=== PATIENT | male | born 1995 | race African-American/Black ===

== ENCOUNTER 2024-09-28 09:42 | Emergency (ER) | payer OTHER ==
[~2024-09-28] VITALS: Ht 180.3 cm; Wt 103.1 kg
[2024-09-28] MEDS ORDERED: GABA-284 PO (09:53)
[2024-09-28 12:02] VITALS: BP 112/67; TEMP 97.8; O2SAT 100
[2024-09-28 12:44] LABS: BASO % 0.3 % (0.0-1.0); EOS # 0.2 10^3/uL (0.0-0.5); EOS % 2.3 % (0.0-3.0); HEMATOCRIT 44.2 % (42.0-52.0); HEMOGLOBIN 14.1 g/dl (13.5-17.5); LYMPH # 2.1 10^3/uL (1.5-5.0); LYMPH % 31.3 % (24.0-44.0); MEAN CORPUSCULAR HEMOGLOBIN 26.3 pg (27.0-33.0); MEAN CORPUSCULAR HGB CONC 31.9 g/dl (32.0-36.5); MEAN CORPUSCULAR VOLUME 82.5 fl (80.0-96.0); MONO # 0.6 10^3/uL (0.0-0.8); NEUTROPHILS # 3.8 10^3/uL (1.5-8.5); NEUTROPHILS % 56.9 % (36.0-66.0); PLATELET COUNT, AUTOMATED 172 10^3/uL (150-450); RED BLOOD COUNT 5.36 10^6/uL (4.30-6.10); WHITE BLOOD COUNT 6.6 10^3/uL (4.0-10.0)
[2024-09-28 13:08] LABS: BLOOD UREA NITROGEN 13 MG/DL (9-23); CARBON DIOXIDE LEVEL 27 MMOL/L (20-31); CHLORIDE LEVEL 105 MMOL/L (98-107); CREATININE FOR GFR 1.09 MG/DL (0.70-1.30); GLOMERULAR FILTRATION RATE > 60.0 (>60); GLUCOSE, FASTING 93 MG/DL (60-100); POTASSIUM SERUM 4.3 MMOL/L (3.5-5.1); SODIUM LEVEL 139 MMOL/L (136-145)
[2024-09-28] MEDS ORDERED: ISOVUE-370 76% 100ML VIAL As Ordered ONE (13:10)
[2024-09-28] MEDS: cefTRIAXone SOD 2 GM in DEXTROSE 5% (D5W) ADV/MINI-BAG 50 ML IV ONE (14:57)
== END 2024-09-28 15:39 | disposition home or self-care (01) ==
LOC: M ED 09:42
DX: K35.80 Unspecified acute appendicitis (principal); K42.9 Umbilical hernia without obstruction or gangrene
CPT/HCPCS: 74177; 80048; 83605; 85025; 96374; 99284; J0696; Q9967

== ENCOUNTER 2024-09-29 10:38 | Emergency (ER) | payer OTHER ==
[~2024-09-29] VITALS: Ht 180.3 cm; Wt 102.0 kg
[~2024-09-29 10:38] MED LIST: GABA-284 PO
[2024-09-29] MEDS: NS (Normal Saline) 0.9% 1,000 ML IV ONE (11:45)
[2024-09-29] MEDS: KETOROLAC 30 MG/ML 1ML VIAL IV ONE (11:57)
[2024-09-29 12:20] LABS: BASO % 0.3 % (0.0-1.0); EOS # 0.2 10^3/uL (0.0-0.5); EOS % 2.9 % (0.0-3.0); HEMATOCRIT 45.9 % (42.0-52.0); HEMOGLOBIN 14.6 g/dl (13.5-17.5); LYMPH # 2.2 10^3/uL (1.5-5.0); LYMPH % 38.6 % (24.0-44.0); MEAN CORPUSCULAR HEMOGLOBIN 26.4 pg (27.0-33.0); MEAN CORPUSCULAR HGB CONC 31.8 g/dl (32.0-36.5); MONO # 0.5 10^3/uL (0.0-0.8); MONO % 8.8 % (2.0-8.0); NEUTROPHILS # 2.9 10^3/uL (1.5-8.5); NEUTROPHILS % 49.2 % (36.0-66.0); PLATELET COUNT, AUTOMATED 179 10^3/uL (150-450); RED BLOOD COUNT 5.53 10^6/uL (4.30-6.10); WHITE BLOOD COUNT 5.8 10^3/uL (4.0-10.0)
[2024-09-29 12:38] LABS: LIPASE 30 U/L (12-53)
[2024-09-29 12:40] LABS: ALBUMIN 3.7 G/DL (3.2-5.2); ALKALINE PHOSPHATASE 58 U/L (40-129); ALT/SGPT 25 U/L (7.0-40); AST/SGOT 39 U/L (<34); BILIRUBIN,DIRECT 0.3 MG/DL (<0.4); BLOOD UREA NITROGEN 13 MG/DL (9-23); C REACTIVE PROTEIN QUANTITATIV 3.55 MG/DL (<1.0); CALCIUM LEVEL 9.4 MG/DL (8.5-10.1); CARBON DIOXIDE LEVEL 28 MMOL/L (20-31); CHLORIDE LEVEL 104 MMOL/L (98-107); GLOMERULAR FILTRATION RATE > 60.0 (>60); GLUCOSE, FASTING 94 MG/DL (60-100); POTASSIUM SERUM 4.1 MMOL/L (3.5-5.1); SODIUM LEVEL 138 MMOL/L (136-145)
[2024-09-29 13:00] VITALS: BP 119/65; TEMP 97; O2SAT 99
== END 2024-09-29 13:06 | disposition home or self-care (01) ==
LOC: M ED 10:38
DX: K42.9 Umbilical hernia without obstruction or gangrene (principal); T85.79XA Infection and inflammatory reaction due to other internal prosthetic devices, implants and grafts, initial encounter
CPT/HCPCS: 80048; 80076; 83605; 83690; 85025; 86140; 96361; 96374; 99284; J1885

== ENCOUNTER 2024-10-07 18:40 | Day surgery (SDC) | payer OTHER ==
[~2024-10-07] VITALS: Ht 180.3 cm; Wt 101.6 kg
[2024-10-07] MEDS ORDERED: CEFD300CAP PO (18:59)
[2024-10-07 21:45] LABS: KETONE, URINE AUTO RFX TRACE mg/dL (NEGATIVE); LEUKOCYTE ESTERASE UR AUTO RFX NEGATIVE (NEGATIVE); MUCUS, URINE RFX SMALL (NEGATIVE); NITRITE, URINE AUTO RFX NEGATIVE (NEGATIVE); RBC, URINE AUTO RFX 0 /HPF (0-3); SQUAM EPITHELIAL CELL UR AURFX 0 /HPF (0-6); WBC, URINE AUTO RFX 0 /HPF (0-3)
[2024-10-07 21:54] LABS: BASO # 0.1 10^3/uL (0.0-0.2); BASO % 0.6 % (0.0-1.0); EOS # 0.4 10^3/uL (0.0-0.5); EOS % 4.7 % (0.0-3.0); HEMATOCRIT 44.6 % (42.0-52.0); HEMOGLOBIN 14.3 g/dl (13.5-17.5); LYMPH # 2.5 10^3/uL (1.5-5.0); LYMPH % 31.8 % (24.0-44.0); MEAN CORPUSCULAR HEMOGLOBIN 26.3 pg (27.0-33.0); MEAN CORPUSCULAR HGB CONC 32.1 g/dl (32.0-36.5); MEAN CORPUSCULAR VOLUME 82.1 fl (80.0-96.0); MONO # 0.6 10^3/uL (0.0-0.8); MONO % 7.9 % (2.0-8.0); NEUTROPHILS # 4.3 10^3/uL (1.5-8.5); NEUTROPHILS % 54.9 % (36.0-66.0); PLATELET COUNT, AUTOMATED 187 10^3/uL (150-450); RED BLOOD COUNT 5.43 10^6/uL (4.30-6.10); WHITE BLOOD COUNT 7.9 10^3/uL (4.0-10.0)
[2024-10-07 22:01] LABS: LIPASE 33 U/L (12-53)
[2024-10-07 22:02] LABS: AMYLASE 118 U/L (30-118)
[2024-10-07 22:03] LABS: ALBUMIN 3.6 G/DL (3.2-5.2); ALKALINE PHOSPHATASE 69 U/L (40-129); ALT/SGPT 23 U/L (7.0-40); AST/SGOT 19 U/L (<34); BILIRUBIN,DIRECT 0.1 MG/DL (<0.4); BILIRUBIN,TOTAL 0.4 MG/DL (0.3-1.2); BLOOD UREA NITROGEN 12 MG/DL (9-23); CALCIUM LEVEL 8.8 MG/DL (8.5-10.1); CARBON DIOXIDE LEVEL 29 MMOL/L (20-31); CHLORIDE LEVEL 104 MMOL/L (98-107); GLOMERULAR FILTRATION RATE > 60.0 (>60); GLUCOSE, FASTING 106 MG/DL (60-100); SODIUM LEVEL 140 MMOL/L (136-145)
[2024-10-07] MEDS: ONDANSETRON 4MG 2ML VIAL IV ONE (22:23)
[2024-10-07] MEDS ORDERED: ISOVUE-370 76% 100ML VIAL As Ordered ONE (22:23)
[2024-10-07] MEDS: MORPHINE 4 MG/ML 1ML VIAL IV ONE (22:25)
[2024-10-08] VITALS (10 sets, daily range): BP systolic 101–117; BP diastolic 56–75; TEMP 96.8–98.4; O2SAT 96–100
[2024-10-08] MEDS: PIPERACILLIN/TAZOBACTAM SOD 3.375 GM in DEXTROSE 5% (D5W) ADV/MINI-BAG 50 ML IV ONE (00:24)
[2024-10-08] MEDS: MORPHINE 2 MG/ML 1ML VIAL IV PRN (03:04)
[2024-10-08] MEDS ORDERED: LIDOCAINE 2% 100MG/5ML SDV (FOR ANES.) As Ordered ONE (05:26)
[2024-10-08] MEDS ORDERED: ONDANSETRON 4MG 2ML VIAL As Ordered ONE (05:26)
[2024-10-08] MEDS ORDERED: METOCLOPRAMIDE INJ 10MG/2ML VIAL As Ordered ONE (05:26)
[2024-10-08] MEDS ORDERED: propofoL 200 MG/20 ML VIAL As Ordered ONE (05:26)
[2024-10-08] MEDS ORDERED: ROCURONIUM BROMIDE 50MG/5ML VIAL As Ordered ONE (05:26)
[2024-10-08] MEDS ORDERED: KETOROLAC 60MG 2ML VIAL As Ordered ONE (05:28)
[2024-10-08] MEDS ORDERED: MIDAZOLAM INJ 2MG/2ML VIAL As Ordered ONE (05:34)
[2024-10-08] MEDS ORDERED: ACETAMINOPHEN 1000MG/100ML IV BAG As Ordered ONE (05:34)
[2024-10-08] MEDS ORDERED: fentaNYL 100 MCG/2 ML INJECTION As Ordered ONE (05:35)
[2024-10-08] MEDS: ZOSYN 3.375GM VIAL As Ordered ONE (06:38)
[2024-10-08] MEDS ORDERED: SUGAMMADEX SODIUM 500 MG/5 ML VIAL (BRIDION) As Ordered ONE (06:42)
[2024-10-08] MEDS ORDERED: NORCO, ANEXSIA 5/325MG TABLET (HYDROcodone/ACETAMINOPHEN) PO PRN (07:30)
[2024-10-08] MEDS ORDERED: MED REC IN PROGRESS XX SCH (07:30)
[2024-10-08] MEDS ORDERED: ONDANSETRON 4MG 2ML VIAL IV PRN ×2 (07:30→07:35)
[2024-10-08] MEDS ORDERED: ACETAMINOPHEN 325 MG TAB PO PRN (07:30)
[2024-10-08] MEDS ORDERED: MORPHINE 2 MG/ML 1ML VIAL IV PRN (07:35)
[2024-10-08] MEDS ORDERED: fentaNYL 100 MCG/2 ML INJECTION IV PRN (07:35)
[2024-10-08] MEDS ORDERED: oxyCODONE 5MG TAB PO PRN (07:35)
[2024-10-08] MEDS: PIPERACILLIN/TAZOBACTAM SOD 3.375 GM in DEXTROSE 5% (D5W) ADV/MINI-BAG 50 ML IV SCH (09:45)
[2024-10-08] MEDS: SENOKOT S TAB PO SCH (09:45)
[2024-10-08] MEDS ORDERED: HOME MED LIST COMPLETE! XX SCH (11:45)
[2024-10-08] MEDS: KETOROLAC 30 MG/ML 1ML VIAL IV PRN (14:44)
[2024-10-08] MEDS: NORCO, ANEXSIA 5/325MG TABLET (HYDROcodone/ACETAMINOPHEN) PO PRN (15:56)
[2024-10-09 04:00] VITALS: BP 113/65; TEMP 98.1; O2SAT 97
[2024-10-09] MEDS ORDERED: AMOX875T2 PO (10:31)
[2024-10-09] MEDS ORDERED: HYDR-3713 PO (10:31)
[2024-10-09 12:00] VITALS: BP 120/77; TEMP 98.6; O2SAT 98
== END 2024-10-09 15:00 | disposition home or self-care (01) ==
LOC: M ED 18:40 → M SDC 18:41 → UNDOADMIN 10-08 00:16 → M ED INP 10-08 00:16 → M MS4PR 10-08 02:56 → M ED INP 10-08 02:56 → M MS4PR 10-08 02:56 → M MS5PR 10-08 16:02 → UNDODISIN 10-09 15:00 → M SDC 10-09 15:00
PROVIDERS: ATTEND Surgery
DX: K35.80 Unspecified acute appendicitis (principal); Z79.2 Long term (current) use of antibiotics
CPT/HCPCS: 49406; 74177; 80047; 80048; 80076; 81001; 82150; 83690; 85025; 96374; 96375; 96376; 99284; J0131; J0665; J1100; J1885; J2250; J2405; J2543; J2765; J3010; Q9967

== ENCOUNTER 2024-10-12 03:20 | Emergency (ER) | payer OTHER ==
[~2024-10-12] VITALS: Ht 180.3 cm; Wt 100.0 kg
[~2024-10-12 03:20] MED LIST changes: +AMOX875T2 PO; +CEFD300CAP PO; +HYDR-3713 PO
[2024-10-12 04:12] LABS: BASO # 0.1 10^3/uL (0.0-0.2); BASO % 0.7 % (0.0-1.0); EOS # 0.4 10^3/uL (0.0-0.5); EOS % 4.7 % (0.0-3.0); HEMATOCRIT 43.1 % (42.0-52.0); HEMOGLOBIN 13.8 g/dl (13.5-17.5); LYMPH # 2.5 10^3/uL (1.5-5.0); LYMPH % 34.1 % (24.0-44.0); MEAN CORPUSCULAR HEMOGLOBIN 26.2 pg (27.0-33.0); MEAN CORPUSCULAR VOLUME 81.8 fl (80.0-96.0); MONO # 0.5 10^3/uL (0.0-0.8); MONO % 7.3 % (2.0-8.0); NEUTROPHILS # 3.9 10^3/uL (1.5-8.5); NEUTROPHILS % 52.8 % (36.0-66.0); PLATELET COUNT, AUTOMATED 254 10^3/uL (150-450); RED BLOOD COUNT 5.27 10^6/uL (4.30-6.10); WHITE BLOOD COUNT 7.4 10^3/uL (4.0-10.0)
[2024-10-12 04:34] LABS: LIPASE 28 U/L (12-53)
[2024-10-12] MEDS ORDERED: ISOVUE-370 76% 100ML VIAL As Ordered ONE (04:36)
[2024-10-12 04:38] LABS: ALBUMIN 3.2 G/DL (3.2-5.2); ALKALINE PHOSPHATASE 70 U/L (40-129); ALT/SGPT 22 U/L (7.0-40); AST/SGOT 17 U/L (<34); BILIRUBIN,TOTAL 0.3 MG/DL (0.3-1.2); BLOOD UREA NITROGEN 10 MG/DL (9-23); CALCIUM LEVEL 8.8 MG/DL (8.5-10.1); CARBON DIOXIDE LEVEL 26 MMOL/L (20-31); CHLORIDE LEVEL 106 MMOL/L (98-107); CREATININE FOR GFR 0.98 MG/DL (0.70-1.30); GLOMERULAR FILTRATION RATE > 60.0 (>60); GLUCOSE, FASTING 126 MG/DL (60-100); POTASSIUM SERUM 3.8 MMOL/L (3.5-5.1); SODIUM LEVEL 140 MMOL/L (136-145); TOTAL PROTEIN 7.5 G/DL (5.7-8.2)
[2024-10-12] MEDS: NS (Normal Saline) 0.9% 1,000 ML IV ONE (04:55)
[2024-10-12] MEDS: ONDANSETRON 4MG 2ML VIAL IV ONE (04:55)
[2024-10-12] MEDS: HYDROMORPHONE HCL 0.5 MG/ 0.5 ML SYRINGE IV ONE (04:56)
[2024-10-12 06:32] LABS: KETONE, URINE AUTO RFX NEGATIVE (NEGATIVE); LEUKOCYTE ESTERASE UR AUTO RFX NEGATIVE (NEGATIVE); MUCUS, URINE RFX SMALL (NEGATIVE); NITRITE, URINE AUTO RFX NEGATIVE (NEGATIVE); RBC, URINE AUTO RFX 0 /HPF (0-3); SQUAM EPITHELIAL CELL UR AURFX 0 /HPF (0-6); WBC, URINE AUTO RFX 0 /HPF (0-3)
[2024-10-12 07:46] VITALS: BP 112/78; TEMP 96.2; O2SAT 96
== END 2024-10-12 07:47 | disposition home or self-care (01) ==
LOC: M ED 03:20 → EDBD 03:20 → M ED 07:47
DX: G89.18 Other acute postprocedural pain (principal)
CPT/HCPCS: 74177; 80053; 81001; 83690; 85025; 87040; 87070; 87077; 87186; 87205; 96361; 96374; 96375; 99284; J1171; J2405; Q9967

== ENCOUNTER → 2025-02-03 | Outpatient (CLI) | payer OTHER | LOC: M RAD 12:53 | PROVIDERS: ATTEND Student in an Organized Health Care Education/Training Program | DX: M25.531 Pain in right wrist (principal) ==